=== PATIENT | female | born 1995 | race Caucasian/White ===

== ENCOUNTER 2018-11-27 02:39 | Emergency (ER) | payer OTHER ==
[~2018-11-27] VITALS: Ht 152.4 cm; Wt 101.2 kg
[~2018-11-27 02:39] MED LIST: BEN50 PO; HC30CR25 TOP; RANI150T35 PO
[2018-11-27 02:41] VITALS: Ht 152.4 cm; Wt 101.2 kg
[2018-11-27] MEDS ORDERED: DIPHENHYDRAMINE 50 MG INJ IM ONE (03:30)
[2018-11-27] MEDS ORDERED: DEXAMETHASONE 10 MG/ML 1 ML INJ IM ONE (03:30)
[2018-11-27] MEDS ORDERED: RANITIDINE 150 MG TAB PO ONE (03:30)
[2018-11-27] MEDS: DIPHENHYDRAMINE 50 MG CAP PO ONE ×2 (03:38→04:02)
[2018-11-27 04:03] VITALS: BP 128/74; PULSE 76; RESP 17
== END 2018-11-27 04:03 | disposition home or self-care (01) ==
LOC: FTE 02:39
DX: L50.0 Allergic urticaria (principal)
CPT/HCPCS: 96372; J1100; Z7502; Z7610